=== PATIENT | female | born 2000 | race Caucasian/White ===

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

== ENCOUNTER 2022-01-20 16:37 | Emergency (ER) | payer MEDICAID ==
[~2022-01-20] VITALS: Ht 175.3 cm; Wt 82.6 kg
[2022-01-20 16:37] VITALS: BP_SYST 104
[2022-01-20 17:23] LABS: BASOPHILS # (AUTO) 0.1 K/uL (0.0-0.2); BASOPHILS % (AUTO) 0.9 % (0.0-2.0); EOSINOPHILS # (AUTO) 0.2 K/uL (0.0-0.4); EOSINOPHILS % (AUTO) 2.5 % (0.0-4.0); HEMATOCRIT 34.2 % (36-48); HEMOGLOBIN 11.9 g/dL (12.0-16.0); LYMPHOCYTES # (AUTO) 2.6 K/uL (1.0-5.5); LYMPHOCYTES % (AUTO) 32.6 % (20.5-51.5); MEAN CORPUSCULAR HEMOGLOBIN 31 pg (27-31); MEAN CORPUSCULAR HGB CONC 35 % (32-36); MEAN CORPUSCULAR VOLUME 89 fL (79.0-98.0); MONOCYTES # (AUTO) 0.7 K/uL (0.0-1.0); MONOCYTES % (AUTO) 9.1 % (1.7-9.3); NEUTROPHILS # (AUTO) 4.3 K/uL (1.8-7.7); NEUTROPHILS % (AUTO) 54.9 % (40.0-70.0); PLATELET COUNT (AUTO) 264 K/uL (130-430); RED BLOOD CELL COUNT(AUTO) 3.86 MIL/uL (4.2-6.2); RED CELL DISTRIBUTION WIDTH 12.7 % (9.0-15.0); WHITE BLOOD COUNT (AUTO) 7.8 K/uL (4.5-11.0)
[2022-01-20 17:40] LABS: CALCIUM 8.7 mg/dL (8.4-11.0); CREATININE 0.91 mg/dL (0.55-1.30); POTASSIUM 3.8 mmol/L (3.5-5.1)
[2022-01-20 18:15] LABS: BILIRUBIN,URINE NEGATIVE (NEGATIVE); BLOOD, URINE NEGATIVE (NEGATIVE); CLARITY/URINE CLEAR (CLEAR); COLOR,URINE YELLOW (YELLOW); GLUCOSE,URINE NEGATIVE (NEGATIVE); KETONES,URINE NEGATIVE (NEGATIVE); LEUKOCYTE ESTERASE ,URINE NEGATIVE (NEGATIVE); NITRITE, URINE NEGATIVE (NEGATIVE); PROTEIN URINE TRACE (NEGATIVE); UROBILINOGEN,URINE 0.2 (0.2-1.0)
[2022-01-20 18:25] LABS: ALBUMIN 3.6 g/dL (3.4-4.8); THYROID STIMULATING HORMONE 0.98 uIu/mL (0.34-4.82); TOTAL BILIRUBIN 0.2 mg/dL (0.0-1.0)
[2022-01-20 18:48] VITALS: BP_SYST 104
[2022-01-20 18:58] LABS: RBC,URINE 0-3 /HPF (0-3); WBC,URINE 0-3 /HPF (0-3)
[2022-01-20 18:59] LABS: BACTERIA,URINE RARE /HPF (None Seen)
== END 2022-01-20 18:48 | disposition home or self-care (01) ==
LOC: SED 16:37
DX: R20.2 Paresthesia of skin (principal); F41.9 Anxiety disorder, unspecified; Z88.2 Allergy status to sulfonamides; Z79.899 Other long term (current) drug therapy
CPT/HCPCS: 36415; 70450-TC; 76376; 80053; 81000; 81025; 84443; 85025; 93005; 99285

== ENCOUNTER 2022-02-14 20:55 | Emergency (ER) | payer MEDICAID ==
[~2022-02-14] VITALS: Ht 175.3 cm; Wt 86.2 kg
[2022-02-14 21:03] VITALS: BP_SYST 140
--- NOTE | 2022-02-14 21:08 | NUR ---
HAS HAD SORE THROAT FOR THREE WEEKS BUT NOW UNABLE TO EAT OR DRINK WITHOUT SEVERE PAIN. PMD SENT HER HERE FOR A CT SCAN BEFORE ABLE TO BE SEEN BY PMD. NO OTHER SYMPTOMS AT THIS TIME. AT-HOME COVID TEST WAS NEGATIVE.
--- NOTE | 2022-02-14 22:16 | NUR ---
PT IS AA&OX4. AFEBRILE. PER PT, SHE'S HAD PAIN IN THROAT 01/29 WHEN SWALLOWING ONLY FOR THE PAST 3 WKS NOW BUT WORSE RECENTLY, HASN'T BEEN ABLE TO EAT PROPERLY, PT STATED. DENIES N/V, DENIES ABDOMINAL PAIN. DENIES COUGH NOR RUNNY NOSE. PER PT, SHE HAS HX OF THYROID PROBLEM AND TAKES A SMALL PILL FOR HER THYROID, DOESN'T REMEMBER THE DOSE. AMBULATORY W/ STEADY GAIT. SAFE & HAZARD FREE ENVIRONMENT PROVIDED. AWAITING TO BE SEEN BY .
--- NOTE | 2022-02-14 22:53 | NUR ---
ER Dr. HORNER at bedside examining patient.
--- NOTE | 2022-02-14 22:53 | NUR ---
# 18 gauge angiocath placed to LAC. Use of asceptic technique. Opsite placed over site. Blood return noted. Blood for lab drawn from site. Flushed with 10 cc of normal saline. No evidence of infiltration noted. Patient tolerated well.
[2022-02-15 00:40] LABS: BASOPHILS % (AUTO) 0.4 % (0.0-2.0); EOSINOPHILS # (AUTO) 0.2 K/uL (0.0-0.4); EOSINOPHILS % (AUTO) 2.6 % (0.0-4.0); HEMATOCRIT 37.5 % (36-48); LYMPHOCYTES # (AUTO) 3.4 K/uL (1.0-5.5); LYMPHOCYTES % (AUTO) 38.2 % (20.5-51.5); MEAN CORPUSCULAR VOLUME 90 fL (79.0-98.0); MONOCYTES # (AUTO) 0.8 K/uL (0.0-1.0); MONOCYTES % (AUTO) 8.8 % (1.7-9.3); NEUTROPHILS # (AUTO) 4.4 K/uL (1.8-7.7); PLATELET COUNT (AUTO) 248 K/uL (130-430); RED BLOOD CELL COUNT(AUTO) 4.18 MIL/uL (4.2-6.2); RED CELL DISTRIBUTION WIDTH 12.9 % (9.0-15.0); WHITE BLOOD COUNT (AUTO) 8.9 K/uL (4.5-11.0)
[2022-02-15 00:50] LABS: CALCIUM 9.3 mg/dL (8.4-11.0); CREATININE 0.97 mg/dL (0.55-1.30); POTASSIUM 3.7 mmol/L (3.5-5.1)
[2022-02-15] MEDS ORDERED: IBUP-1969 PO (01:06)
--- NOTE | 2022-02-15 01:36 | NUR ---
Patient given written and verbal discharge instructions and verbalizes understanding. ER MD discussed with patient the results and treatment provided. Patient in stable condition. ID arm band removed. IV catheter removed intact and dressing applied, no active bleeding. Rx of IBUPROFEN given. Patient educated on pain management and to follow up with PMD. Pain Scale 0/10. Opportunity for questions provided and answered. Medication side effect fact sheet provided.
== END 2022-02-15 01:35 | disposition home or self-care (01) ==
LOC: SED 20:55
DX: R13.19 Other dysphagia (principal); Z88.2 Allergy status to sulfonamides; Z79.899 Other long term (current) drug therapy
CPT/HCPCS: 99285; 70491; 80048; 85025; 36415; 76376; 81025; Q9967

== ENCOUNTER 2022-05-07 17:43 | Emergency (ER) | payer MEDICAID ==
[~2022-05-07] VITALS: Ht 175.3 cm; Wt 77.6 kg
[~2022-05-07 17:43] MED LIST: IBUP-1969 PO
[2022-05-07 17:45] VITALS: BP_SYST 115
[2022-05-07 19:05] LABS: BILIRUBIN,URINE NEGATIVE (NEGATIVE); BLOOD, URINE NEGATIVE (NEGATIVE); CLARITY/URINE CLEAR (CLEAR); COLOR,URINE YELLOW (YELLOW); GLUCOSE,URINE NEGATIVE (NEGATIVE); KETONES,URINE NEGATIVE (NEGATIVE); LEUKOCYTE ESTERASE ,URINE NEGATIVE (NEGATIVE); NITRITE, URINE NEGATIVE (NEGATIVE); PROTEIN URINE NEGATIVE (NEGATIVE); UROBILINOGEN,URINE 0.2 (0.2-1.0)
[2022-05-07 19:18] LABS: CALCIUM 9.1 mg/dL (8.4-11.0); CREATININE 0.83 mg/dL (0.55-1.30)
[2022-05-07 19:23] LABS: ALBUMIN 4.1 g/dL (3.4-4.8); BASOPHILS % (AUTO) 0.5 % (0.0-2.0); EOSINOPHILS # (AUTO) 0.2 K/uL (0.0-0.4); TOTAL BILIRUBIN 0.3 mg/dL (0.0-1.0)
[2022-05-07 19:28] LABS: HEMATOCRIT 39.5 % (36-48); HEMOGLOBIN 13.1 g/dL (12.0-16.0); MEAN CORPUSCULAR HEMOGLOBIN 30 pg (27-31); MEAN CORPUSCULAR HGB CONC 33 % (32-36); MEAN CORPUSCULAR VOLUME 91 fL (79.0-98.0); MONOCYTES # (AUTO) 0.6 K/uL (0.0-1.0); MONOCYTES % (AUTO) 6.7 % (1.7-9.3); NEUTROPHILS # (AUTO) 4.4 K/uL (1.8-7.7); NEUTROPHILS % (AUTO) 53.8 % (40.0-70.0); PLATELET COUNT (AUTO) 262 K/uL (130-430); RED BLOOD CELL COUNT(AUTO) 4.36 MIL/uL (4.2-6.2); WHITE BLOOD COUNT (AUTO) 8.2 K/uL (4.5-11.0)
--- NOTE | 2022-05-07 22:00 | NUR ---
Ambulatory to the ED presenting for evaluation of melena/BRBPR that began gradually, has been ongoing for the last 2 days, and not improved by anything. The patient denies history of similar symptoms. She states her abdominal pain is localized mostly over the left lower quadrant without radiation or migration. She otherwise denies NSAID or alcohol use. Patient reports no associated syncope or light-headedness. No associated chest pain, shortness of breath, or palpitations. Patient denies any other associated symptoms.
[2022-05-07] MEDS ORDERED: NACL 0.9% 1,000 ML IV ONE (22:30)
[2022-05-07] MEDS ORDERED: PROCHLORPERAZINE EDISYLATE 10 MG/2 ML VIAL IVP ONE (22:30)
[2022-05-07] MEDS ORDERED: MORPHINE 4 MG INJ. 4 MG/ML VIAL IVP ONE (22:30)
--- NOTE | 2022-05-07 23:00 | NUR ---
ER at bedside examining patient.
--- NOTE | 2022-05-07 23:15 | NUR ---
# 20 gauge angiocath placed to LAC. Use of asceptic technique. Opsite placed over site. Blood return noted. Blood for lab drawn from site. Flushed with 10 cc of normal saline. No evidence of infiltration noted. Patient tolerated well.
--- NOTE | 2022-05-07 23:33 | NUR ---
Medicated per MD orders. IVF infusing with no s/s of infiltration at this time. Will cont to monitor
[2022-05-08] MEDS ORDERED: FAMO40TA71 PO (00:57)
[2022-05-08] MEDS ORDERED: HYOS0.1275 PO (00:57)
[2022-05-08] MEDS ORDERED: FAMOTIDINE PF 20 MG/2 ML VIAL IVP ONE (01:00)
[2022-05-08] MEDS ORDERED: FAMOTIDINE PF 20 MG/2 ML VIAL ONE (01:03)
[2022-05-08 01:08] VITALS: BP_SYST 122
== END 2022-05-08 01:08 | disposition home or self-care (01) ==
LOC: SED 17:43
DX: K62.5 Hemorrhage of anus and rectum (principal); K57.90 Diverticulosis of intestine, part unspecified, without perforation or abscess without bleeding; K29.70 Gastritis, unspecified, without bleeding; Z88.2 Allergy status to sulfonamides; Z79.899 Other long term (current) drug therapy
CPT/HCPCS: 99284; 74176; 96374; 96361; 96375 ×2; 80053; 85025; 87040; 36415; 76376; 81025; 83605; 81003; J0780; J2270; J7030; J3490